=== PATIENT | female | born 1990 | race Caucasian/White ===

== ENCOUNTER 2021-06-01 20:57 | Emergency (ER) | payer OTHER ==
[~2021-06-01] VITALS: Ht 162.6 cm; Wt 117.9 kg
[2021-06-01] MEDS ORDERED: SERTRALINE HCL100 MG PO (21:29)
[2021-06-01] MEDS ORDERED: PREDNISONE 20 M20 MG PO (22:56)
[2021-06-01] MEDS ORDERED: NEURONTIN100 MG PO (22:56)
[2021-06-01 22:58] LABS: URINE BILIRUBIN NEGATIVE (Negative); URINE BLOOD TRACE (Negative); URINE COLOR YELLOW; URINE GLUCOSE-RANDOM NEGATIVE (Negative); URINE KETONES TRACE (Negative); URINE LEUKOCYTES-REFLEX 1+ (Negative); URINE NITRITE-REFLEX NEGATIVE (Negative); URINE PROTEIN NEGATIVE (Negative); URINE SPECIFIC GRAVITY 1.025 (1.005-1.030); URINE UROBILINOGEN 0.2 E.U./dl (0.2-1.0)
[2021-06-01 22:59] LABS: URINE CLARITY SL CLOUDY
[2021-06-01 23:08] LABS: BACTERIA-REFLEX >30 Many /HPF (None Seen); CASTS None Seen /LPF (None Seen); MUCUS 4-6 Moderate strn/LPF (None Seen); SQUAMOUS >10 Many /LPF (0-3); TRANSITIONAL EPITHEL CELL 0-3 Few /LPF (None Seen); WBC CLUMPS Few (None Seen)
[2021-06-01 23:09] LABS: CRYSTALS None Seen /LPF (None Seen)
[2021-06-01] MEDS ORDERED: CEPHALEXIN500 MG PO (23:17)
[2021-06-01 23:28] VITALS: BP 144/87
== END 2021-06-01 23:29 | disposition home or self-care (01) ==
LOC: M.ERS 20:57
PROVIDERS: Personal Emergency Response Attendant
DX: B08.4 Enteroviral vesicular stomatitis with exanthem (principal); M79.2 Neuralgia and neuritis, unspecified; F41.9 Anxiety disorder, unspecified; Z79.899 Other long term (current) drug therapy